=== PATIENT | male | born 2000 | race Caucasian/White ===

== ENCOUNTER 2025-04-23 13:23 | Emergency (ER) | payer SELFPAY ==
[2025-04-23 13:27] VITALS: BP 135/97; PULSE 104; TEMP 36.8; O2SAT 98; BMI 18.8
--- NOTE | 2025-04-23 14:24 | ED_ITS ---
HPI - URI/Sore Throat General: Chief Complaint: Upper Respiratory Infection Stated Complaint: Wants tested for strep Time Seen by Provider: 04/23/25 13:28 Source: patient Mode of arrival: ambulatory Limitations: no limitations History of Present Illness: Patient is a 25-year-old male who presents the emergency department planing of sore throat. States symptoms began recently, he would like swab for strep. Also reports some sinus drainage, no fevers or other symptoms reported. Sick contact exposure. History of allergies. MD elicited complaint: sore throat and rhinorrhea Consistency: constant Severity: mild Associated symptoms: Deny abdominal pain, chills, chest pain, diarrhea, ear or mastoid pain, fever(s), headache(s), nausea or vomiting Related Data Allergies Allergy/AdvReac Type Severity Reaction Status Date / Time No Known Allergies Allergy Verified 04/23/25 13:34 Review of Systems General: Reports: 10 or more systems reviewed and unremarkable except in HPI and below Const: Denies: fever(s), chills or fatigue Eyes: Denies: change in vision ENMT: Reports: throat pain and nasal discharge; Denies: ear or mastoid pain Card: Denies: chest pain, palpitations, swelling of feet/ankles or lightheadedness Resp: Denies: dyspnea, productive cough or wheezing GI: Denies: abdominal pain, nausea, vomiting, diarrhea or constipation : Denies: flank pain, difficulty urinating, dysuria or urinary frequency Musc: Denies: neck pain, back pain or joint pain Skin/Breast: Denies: rash Neuro: Denies: headache(s), numbness in extremities or weakness in extremities Physical Exam Const: COMMON NORMALS: no acute distress and healthy appearing GENERAL APPEARANCE: cooperative, comfortable and well developed HENMT: COMMON NORMALS: normocephalic, atraumatic, hearing grossly normal bilaterally, external ears normal, EAC's normal, TM's normal bilaterally, Normal external nose present and Normal nasal mucous membranes and turbinates present HEAD & SCALP: normal to inspection, normocephalic and atraumatic FACE & SIN US: normal facial exam and sinuses nontender NOSE: Normal external nose present, Normal nares present, No nasal polyps present and Normal nasal mucous membranes and turbinates present EXTERNAL EAR: Yes external ears normal EXTERNAL AUDITORY CANAL: EAC's normal TYMPANIC MEMBRANE: TM's normal bilaterally MOUTH: Normal oral and palatal mucosa present THROAT: posterior oropharynx normal and tonsils normal Eye: COMMON NORMALS: EOMs intact bilaterally, conjunctivae normal and normal visual powell by confrontation GENERAL EYE: appearance normal, both eyes and all related structures CONJUNCTIVA: Yes conjunctivae normal Neck/C-Spine: COMMON NORMALS: full ROM, no lymphadenopathy, supple and no meningeal signs GENERAL: Yes normal visual inspection Extremity: COMMON NORMALS: normal to inspection, full ROM and capillary refill normal Neuro: MENINGEAL SIGNS: Yes no meningeal signs Skin: COMMON NORMALS: no rashes or lesions noted GENERAL SKIN EXAM: no rashes or lesions noted Course Vital Signs: Vital signs: Vital Signs Temperature 98.2 F 04/23/25 13:27 Pulse Rate 104 H 04/23/25 13:27 Blood Pressure 135/97 04/23/25 13:27 Pulse Oximetry 98 04/23/25 13:27 Oxygen Delivery Me thod Room Air 04/23/25 13:27 MDM - URI/Sore Throat Medical Decision Making Sore throat and rhinorrhea for a day with sick contact exposure. Strep swab was negative. Physical exam was unremarkable. Vitals normal. I suspect allergic rhinitis or viral pharyngitis and will have the patient treat at home with [id number] remedies. Lab Data Laboratory Results Group A Strep Rapid Negative (Negative) 04/23/25 13:33 No radiology studies performed this visit Discharge Plan Discharge Patient Disposition: Home Clinical Impression: Allergic pharyngitis Condition: Stable Discharge Orders: Discharge ED (Routine); Ordered 04/23/25 Ordered By: Rai Kim Patient Instructions: Patient Portal & Lopez Instructions Activity Restrictions/Additional Instructions: Sore Throat Discharge Instructions Diagnosis: The patient presented with a sore throat and was evaluated for streptococcal pharyngitis. The rapid strep test was negative. The most likely diagnoses are viral pharyngitis or allergic pharyngitis (allergies). --- General Course and Prognosis: - Most sore throats are caused by viruses or allergies and resolve without antibiotics within 5?7 days. - Antibiotics are not indicated and do not improve symptoms or speed recovery in the absence of a positive strep test. --- Home Treatment for Viral Pharyngitis: - Analgesics: - Acetaminophen or nonsteroidal anti-inflammatory drugs (NSAIDs, e.g., ibuprofen) are first-line for pain and fever control. - Dosage should follow package instructions or as previously prescribed. - Throat Lozenges: - Ectoine lozenges, flurbiprofen lozenges (8.75 mg), or lozenges containing amylmetacresol/2,4-dichlorobenzyl alcohol (AMC/DCBA) or hexylresorcinol can provide symptomatic relief. - Ectoine lozenges have demonstrated superior symptom reduction and tolerability compared to saline gargle and hyaluronic acid lozenges. - Flurbiprofen lozenges provide rapid and sustained relief of throat pain, regardless of strep status. - Lozenges with AMC/DCBA or hexylresorcinol may also have local antiviral effects. - Salt Water Gargle: - Warm salt water gargles (? teaspoon salt in 8 oz warm water) may provide temporary relief, though data are limited. - Hypertonic saline gargling and nasal irrigation may reduce symptom duration and viral shedding. - Hydration and Rest: - Encourage adequate fluid intake and rest. - Other Supportive Measures: - Humidified air, warm fluids, and avoidance of irritants (smoke, strong odors). --- Home Treatment for Allergic Pharyngitis (Allergies): - Second-Generation Oral Antihistamines: - Agents such as cetirizine, loratadine, fexofenadine, or levocetirizine are first-line for allergic symptoms (itchy/watery eyes, sneezing, nasal congestion). - These are preferred over first-generation antihistamines due to better safety and tolerability. - Dosage: Follow package instructions (e.g., cetirizine 10 mg once daily). - Intranasal Corticosteroids: - For persistent or [id number] symptoms, intranasal corticosteroids (fluticasone, triamcinolone, budesonide, mometasone) are effective and available [id number]. - Most common side effect is mild nasal bleeding. - Intranasal Antihistamines: - Azelastine or olopatadine nasal sprays may be used as adjuncts or alternatives. - Environmental Control: - Minimize exposure to known allergens (e.g., pollen, dust, pet dander). - Complementary Therapies: - Manuka honey may be safe as an adjunct, though evidence is limited. --- When to Seek Medical Attention: - Symptoms persist beyond 7?10 days or worsen. - Difficulty breathing, swallowing, drooling, neck swelling, or severe pain develops. - High fever (>101?F/38.3?C) persists or new symptoms arise (e.g., rash, joint pain). --- Summary: - Most sore throats are self-limited and do not require antibiotics. - Symptomatic management with analgesics, lozenges, saline gargles, and antihistamines (if allergic) is recommended. - Follow up if symptoms do not improve or if concerning features develop. Print Language: Khmer Coding Level of Care Code ED [employer]
[2025-04-23 14:27] LABS: Rapid Strep A Test Negative (Negative)
== END 2025-04-23 14:44 | disposition home or self-care (01) ==
PROVIDERS: Emergency Medicine; Emergency Provider Physician Assistant
DX: J02.9 Acute pharyngitis, unspecified (principal)
CPT/HCPCS: 87081; 87880; 99283